=== PATIENT | male | born 1980 | race Caucasian/White ===

== ENCOUNTER 2020-02-27 08:39 | Outpatient (CLI) | payer BC ==
--- NOTE | 2020-02-27 09:54 | Ultrasound Report ---
PROCEDURE: Abdomen Limited INDICATIONS: LIVER FUNCTION TEST TECHNIQUE: Real-time focused scanning was performed of the abdomen, with image documentation. COMPARISON: None available FINDINGS: Suboptimal imaging secondary to lack of good acoustic window. The liver is normal size and diffusely hyperechoic and dense. No focal lesions were detected. The miller creas could not be seen. The gallbladder is contracted despite patient being nothing by mouth. The wall is normal in thickness at 2 mm. No stones, sludge, or pericholecystic fluid. The common duct is normal caliber at 5 mm. The right kidney is normal size at 13.5 cm in length and has a normal morphology without hydronephros is. No right upper quadrant free fluid. IMPRESSION: 1. Contracted gallbladder without stones or sludge. This may indicate chronic cholecystitis or biliar y dysfunction. Nuclear medicine HIDA scan may be useful for further diagnosis. 2. Hepatic steatosis. Reviewed by: Aylin Adkins MD on 02/27/2020 8:53 AM ELAY[facility] Approved by: Aylin Adkins MD on 02/27/2020 8:53 AM ELAYNE Station ID: [id number]
== END 2020-02-27 08:40 | disposition home or self-care (01) ==
LOC: DI 08:39
PROVIDERS: ATTEND Family Medicine
DX: R93.2 Abnormal findings on diagnostic imaging of liver and biliary tract (principal); K76.0 Fatty (change of) liver, not elsewhere classified
CPT/HCPCS: 76705

== ENCOUNTER 2020-03-15 07:46 | Outpatient (CLI) | payer BC ==
[2020-03-15] MEDS ORDERED: SINCALIDE 5 MCG VIAL ONE (10:19)
--- NOTE | 2020-03-15 12:09 | Nuclear Medicine Report ---
PROCEDURE: Hepatobiliary HIDA w/ Rx INDICATIONS: GALLBLADDER SLUDGE RADIOPHARMACEUTICAL: 5.1 mCi Tc-99m mebrofenin i.v. and 2.9 ?g sincalide i.v. TECHNIQUE: Following intravenous administration of Tc-99m mebrofenin, sequential anterior abdominal images were obtained through 60 minutes. To evaluate the contractile response of the gallbladder in response to Cholecystokinin (CCK), 2.9 microgram sincalide (0.02 ?g/kg) was administered by slow intr avenous infusion approximately 60 minutes after the administration of the radiopharmaceutical. Seque ntial imaging was continued for 30 minutes after the start of CCK infusion. Gallbladder ejection fra ction was calculated. COMPARISON: None. FINDINGS: Biliary scan: There is normal tracer uptake and excretion by the liver. There is normal visualizati on of the intrahepatic ducts, common bile duct, and gallbladder. There is normal tracer transit into the duodenum. CCK stimulation: There is normal contractile response of the gallbladder to CCK infusion. The calcu lated gallbladder ejection fraction is 90%; normal values are above 35%. IMPRESSION: 1. Normal biliary imaging study. 2. Normal contractile response of gallbladder to CCK infusion.. Reviewed by: Toan Arreguin MD on 03/15/2020 12:08 PM PDT Approved by: Toan Arreguin MD on 03/15/2020 12:08 PM PDT Station ID: [id number]
[2020-03-15] MEDS ORDERED: SODIUM CHLORIDE 0.9% IV ONE (12:18)
[2020-03-15] MEDS ORDERED: SINCALIDE IV ONE (12:18)
== END 2020-03-15 07:47 | disposition home or self-care (01) ==
LOC: DI 07:46
PROVIDERS: ATTEND Family Medicine
DX: K82.8 Other specified diseases of gallbladder (principal)
CPT/HCPCS: 78227; J7040

== ENCOUNTER 2020-07-25 09:30 | Outpatient (CLI) | payer BC | END 2020-07-25 09:31 | disposition home or self-care (01) | LOC: COV 09:30 | PROVIDERS: ATTEND Family Medicine | DX: U07.1 COVID-19 (principal) ==